=== PATIENT | male | born 1980 | race Two or more races ===

== ENCOUNTER 2019-02-11 20:02 | Emergency (ER) | payer MEDICAID ==
[~2019-02-11] VITALS: Ht 177.8 cm; Wt 72.6 kg
--- NOTE | 2019-02-11 20:13 | NUR ---
BIBS FOR C/O CP SINCE AM. 10/26. NON- RADIATING. -N/V. - H/A OR DIZZINESS. PLACED ON A MONITOR,
--- NOTE | 2019-02-11 20:16 | NUR ---
AT THE BED SIDE
[2019-02-11] MEDS ORDERED: ASPIRIN 81 MG TAB.CHEW ONE (20:27)
[2019-02-11 20:29] LABS: BASOPHILS % (AUTO) 0.7 % (0.0-2.0); HEMATOCRIT 41 % (39-51); HEMOGLOBIN 13.2 g/dL (13.5-17.5); LYMPHOCYTES # (AUTO) 2.8 /CMM (0.8-4.8); LYMPHOCYTES % (AUTO) 40.6 % (20.0-44.0); MEAN CORPUSCULAR HGB CONC 33 g/dl (31.0-36.0); MEAN CORPUSCULAR VOLUME 76 fL (80-96); MONOCYTES # (AUTO) 0.7 /CMM (0.1-1.30); NEUTROPHILS # (AUTO) 3.2 /CMM (1.8-8.9); NEUTROPHILS % (AUTO) 45.7 % (43.0-81.0); PLATELET COUNT (AUTO) 219 /CMM (150-450); RED BLOOD CELL COUNT(AUTO) 5.33 MIL/uL (4.5-6.0); WHITE BLOOD COUNT (AUTO) 6.9 K/uL (4.3-11.0)
[2019-02-11] MEDS ORDERED: ASPIRIN 81 MG TAB.CHEW PO ONE (20:30)
[2019-02-11 20:47] LABS: CALCIUM, SERUM 8.9 mg/dL (8.5-10.1); CARBON DIOXIDE 30 mmol/L (21-32); CHLORIDE 102 mmol/L (98-107); CREATININE 1.1 mg/dL (0.6-1.3); GLUCOSE 65 mg/dL (74-106); POTASSIUM 3.5 mmol/L (3.5-5.1); SODIUM SERUM 139 mmol/L (136-145); UREA NITROGEN, BLOOD 19 mg/dL (7-18)
[2019-02-11 22:30] VITALS: BP 119/74
--- NOTE | 2019-02-11 22:30 | NUR ---
IV removed. Catheter intact and site benign. Pressure and 4x4 applied to site. No bleeding noted.Patient discharged to home in stable condition. Rx anmd Written and verbal after care instructions given. Patient verbalizes understanding of instruction.
== END 2019-02-11 22:31 | disposition home or self-care (01) ==
LOC: ER 20:05
DX: R07.89 Other chest pain (principal); F17.200 Nicotine dependence, unspecified, uncomplicated; Z60.2 Problems related to living alone; Z86.19 Personal history of other infectious and parasitic diseases
CPT/HCPCS: 36415; 71045-TC; 80048-TC; 84484-TC; 85025-TC

== ENCOUNTER 2021-06-10 22:32 | Emergency (ER) | payer MEDICAID, OTHER ==
[~2021-06-10] VITALS: Ht 172.7 cm; Wt 72.6 kg
--- NOTE | 2021-06-11 00:30 | NUR ---
PATIENT [employer]IB[employer] 79 & [employer] C/O MED CLEARANCE PT "SWALLOWED BALLOON OF HEROIN". PATIENT A/O, RR EVEN AND UNLABORED, NO SOB NOTED. PATIENT TAKEN TO ER BED 12. PATIENT CONNECTED TO CARDIAC AND POX MONITOR.
[2021-06-11 00:51] LABS: BASOPHILS # (AUTO) 0.1 K/uL (0.0-0.2); BASOPHILS % (AUTO) 0.4 % (0.0-2.0); EOSINOPHILS % (AUTO) 0.9 % (0.0-6.0); HEMATOCRIT 43 % (39-51); HEMOGLOBIN 13.7 g/dL (13.5-17.5); LYMPHOCYTES # (AUTO) 2.3 K/uL (0.8-4.8); LYMPHOCYTES % (AUTO) 17.4 % (20.0-44.0); MEAN CORPUSCULAR HGB CONC 32 g/dl (31.0-36.0); MEAN CORPUSCULAR VOLUME 75 fL (80-96); MONOCYTES # (AUTO) 0.6 K/uL (0.1-1.30); MONOCYTES % (AUTO) 4.8 % (2.0-12.0); NEUTROPHILS # (AUTO) 10.1 K/uL (1.8-8.9); NEUTROPHILS % (AUTO) 76.5 % (43.0-81.0); PLATELET COUNT (AUTO) 256 K/uL (150-450); WHITE BLOOD COUNT (AUTO) 13.3 K/uL (4.3-11.0)
--- NOTE | 2021-06-11 02:11 | NUR ---
URINE COLLECTED. LAB CALLED FOR WING COVERER
[2021-06-11 06:01] LABS: COLOR,URINE LIGHT YELLOW (YELLOW)
[2021-06-11 06:02] LABS: BILIRUBIN,URINE NEGATIVE (NEGATIVE); LEUKOCYTE ESTERASE ,URINE NEGATIVE (NEGATIVE); NITRITE, URINE NEGATIVE (NEGATIVE); PROTEIN,URINE NEGATIVE (NEGATIVE); UGLUCOSE NEGATIVE (NEGATIVE); UROBILINOGEN,URINE 0.2 EU/dL (0.2)
[2021-06-11 07:15] LABS: CREATININE 1.3 mg/dL (0.6-1.3); POTASSIUM 3.9 mmol/L (3.5-5.1)
--- NOTE | 2021-06-11 08:19 | NUR ---
PATIENT ASLEEP, EASILY AROUSABLE, [id number] AT BEDSIDE
--- NOTE | 2021-06-11 09:29 | NUR ---
PT RESTING IN BED. VSS. CHEMISTRY STILL PENDING.
--- NOTE | 2021-06-11 10:49 | NUR ---
DR EVERETT ASK TO CALL LAB FOR CMP RESULT. PER LAB WILL FOLLOW UP.
[2021-06-11 11:00] LABS: ALBUMIN 3.5 g/dL (3.4-5.0); BILIRUBIN,DIRECT 0.1 mg/dL (0.0-0.2); BILIRUBIN,TOTAL 0.2 mg/dL (0.2-1.0); TOTAL PROTEIN, SERUM 7.4 g/dL (6.4-8.2)
--- NOTE | 2021-06-11 12:14 | NUR ---
PER CLS 30 MINS FOR ALKALINE PHOSPHATASE RESULT.
[2021-06-11] MEDS ORDERED: ACETAMINOPHEN ES 500 MG TABLET ONE (12:19)
[2021-06-11 12:29] VITALS: BP 118/72
[2021-06-11] MEDS ORDERED: ACETAMINOPHEN 325 MG TABLET PO ONE ×2 (12:30)
--- NOTE | 2021-06-11 12:30 | NUR ---
Patient discharged in custody in stable condition. Written and verbal after care instructions given. Patient verbalizes understanding of instruction.
== END 2021-06-11 12:30 ==
LOC: ER 22:51
DX: Z02.89 Encounter for other administrative examinations (principal); Z71.1 Person with feared health complaint in whom no diagnosis is made; F17.200 Nicotine dependence, unspecified, uncomplicated; Z86.19 Personal history of other infectious and parasitic diseases
CPT/HCPCS: 36415; 80048-TC; 80076-TC; 83690-TC; 85025-TC